=== PATIENT | female | born 1955 | race Caucasian/White ===

== ENCOUNTER 2017-03-13 07:51 | Day surgery (SDC) | payer OTHER ==
[~2017-03-13 07:51] MED LIST: Albuterol 0.083% 2.5 MG/3 ML Neb Soln NEB PRN; HYDROmorphone 2 MG/ML SDV IV PRN; HYDROmorphone 2 MG/ML SDV IVPUSH PRN; Lactated Ringers 1,000 ML IV SCH; Naloxone 0.4 MG/ML SDV IVPUSH PRN; Ondansetron 4 MG/2 ML SDV IVPUSH PRN; Promethazine 25 MG/ML SDV IM PRN; fentaNYL 100 MCG/2 ML SDV IVPUSH PRN
[2017-03-13] MEDS ORDERED: HYDROmorphone 2 MG/ML SDV IVPUSH PRN (08:05)
[2017-03-13] MEDS: Lactated Ringers 1,000 ML IV SCH ×2 (09:25→16:40)
[2017-03-13] MEDS ORDERED: Lactated Ringers 1,000 ML IV ONE (12:00)
[2017-03-13] MEDS ORDERED: Dexamethasone 4 MG/ML 5 ML MDV IVPUSH ONE (12:00)
[2017-03-13] MEDS ORDERED: Rocuronium 50 MG/5 ML Vial IV ONE (12:00)
[2017-03-13] MEDS ORDERED: Succinylcholine 200 MG/10 ML MDV IV ONE (12:00)
[2017-03-13] MEDS ORDERED: fentaNYL 100 MCG/2 ML SDV IV ONE (12:00)
[2017-03-13] MEDS ORDERED: ceFAZolin 1 GM Vial IV ONE (12:00)
[2017-03-13] MEDS ORDERED: Propofol 200 MG/20 ML SDV IV ONE (12:00)
[2017-03-13] MEDS ORDERED: Naloxone 0.4 MG/ML SDV IV ONE (12:00)
[2017-03-13] MEDS ORDERED: ePHEDrine 50 MG/ML SDV IV ONE (12:00)
[2017-03-13] MEDS ORDERED: Midazolam 1 MG/ML 2 ML SDV IV ONE (12:00)
[2017-03-13] MEDS ORDERED: Phenylephrine 1% 10 MG/ML SDV IV ONE (12:00)
[2017-03-13] MEDS ORDERED: HYDROmorphone 2 MG/ML SDV IV ONE (12:00)
[2017-03-13] MEDS ORDERED: Isosulfan Blue 5 ML SDV ONE ×2 (12:26→12:30)
--- NOTE | 2017-03-13 15:18 | NM ---
INDICATION: Left breast CA/patient scheduled for bilateral mastectomy with left breast CA. NUCLEAR MEDICINE TUMOR LOCALIZATION, LIMITED: At 0838 hours, 1.1 mCi [id number] colloid was injected at the site of drainage for left breast cancer. The injection was made with 1.2 mL volume. MTDD
--- NOTE | 2017-03-13 17:55 | PCM.OPNOTE ---
- General Post-Op/Procedure Note Date of Surgery/Procedure: 03/13/17 Operative Procedure(s): Bilat Mastectomy. L Sentinal Node Bx Pre Op Diagnosis: L Breast cancer Post-Op Diagnosis: Same Anesthesia Technique: General ET Tube Primary Surgeon: Domenico Burrell Anesthesia Provider: Shaw Aguilera Pathology: R & L Breasts and L Nodes EBL in mLs: 300 Surgical Drain/Tube Type: Nirav Orozco Flat Drain (in each axilla) Complications: None Condition: Good
[2017-03-13] MEDS ORDERED: Acetaminophen/HYDROcodone 325-5 MG Tab PO PRN (17:57)
[2017-03-13] MEDS ORDERED: Lactated Ringers 1,000 ML IV SCH (18:00)
[2017-03-13] MEDS: Morphine 2 MG/ML Syringe IVPUSH PRN ×2 (18:43→21:47)
--- NOTE | 2017-03-13 23:51 | OR ---
DATE OF OPERATION: 03/13/2017 SURGEON: Domenico Burrell MD PREOPERATIVE DIAGNOSIS: Left breast cancer. POSTOPERATIVE DIAGNOSIS: Left breast cancer. PROCEDURE: 1. Right and left simple mastectomies. 2. Left sentinel node biopsy. 3. Left breast injection of technetium-99 sulfur colloid. 4. Left breast injection of Lymphazurin blue dye. ANESTHESIA: General. DESCRIPTION OF PROCEDURE: The patient was injected with technetium-99 sulfur colloid in the left lateral areolar position intradermal and then eventually brought to the operating room, where general endotracheal anesthesia was administered. 3 mL of Lymphazurin blue was injected in the left subareolar breast tissue. Both breasts were prepped and draped sterilely. The mastectomy on the left side was performed first by doing the upper outer portion of the flap so I had access to the axilla. [place] nodes were then removed. She had 3 fairly active nodes. The first two were removed and the level 1 nodes with activity of 7399 and 9507. In the level 2 area, I was able to find an active node with a 10 second count of 10,536. A fourth small area of activity was encountered without an obvious palpable node. I did remove that tissue and a 10 second count of 1315 was present. I then completed the upper flap of the mastectomy by continuing dissection along the plane between the subcutaneous tissue and breast tissue to the level of the clavicle and down to the pectoral muscle. This was continued medially to the sternum and laterally until the latissimus dorsi muscle was identified. Lastly, the inferior flap was raised down to the level of the chest wall. The breast tissue was removed with electrocautery. Some larger bleeders were suture ligated with 3-0 Vicryl or tied with 3-0 Vicryl tie. Once the breast tissue was completely removed, the wound was thoroughly irrigated and the surgical site inspected and was hemostatic. Wound was closed in 2 layers with 2 - 0 Vicryl subcutaneous sutures and skin reapproximated with lulu. I did bring out a quarter-inch flat drain that was placed in the left axilla and secured it to the skin with 2-0 silk and connected it to bulb suction. Blood loss on this side was estimated at 200 mL and she tolerated this well. Next, the right mastectomy was performed by raising the skin flaps in the usual positions to the level of the clavicle superiorly, to the sternum medially, and latissimus dorsi laterally. The inferior flap was raised down to the level of the chest wall and breast tissue removed using electrocautery. There was one large bleeder and the right axilla was clamped and suture ligated with 3-0 Vicryl. Otherwise, some minimal oozing occurred, controlled with electrocautery. Once the breast tissue was removed on the right, I did palpate the axilla and no abnormalities were noted. Wound was closed in the same fashion as the other side. Estimated blood loss on this side was 150 mL[address] I also did place a quarter-inch flat drain in the right axilla. A bulky sterile pressure dressing with a binder was placed around her chest. The patient tolerated the procedure well. She was extubated and returned to recovery in stable condition. /[id number] ZORAN/BELKIS PEACE
[2017-03-14] MEDS: Morphine 2 MG/ML Syringe IVPUSH PRN ×2 (04:25→07:59)
--- NOTE | 2017-03-14 08:23 | PCM.SURGPN ---
- General Info Date of Service: 03/14/17 POD#: 1 Functional Status: Reports: Pain Controlled, Tolerating Diet - Review of Systems General: Reports: No Symptoms - Patient Data Vitals - Most Recent: Last Vital Signs Temp 98.5 F 03/14/17 04:30 Pulse 83 03/14/17 04:30 Resp 16 03/14/17 04:30 BP 104/61 03/14/17 04:30 Pulse Ox 96 03/14/17 04:30 Weight - Most Recent: 78.471 kg I&O - Last 24 Hours: Intake & Output 03/13/17 03/14/17 03/14/17 22:59 06:59 14:59 Intake Total 546 1297 Output Total 170 20 Balance 376 1277 Med Orders - Current: Current Medications Hydrocodone Bitart/Acetaminophen ([place] 325-5 Mg) 1 tab PO Q4H PRN PRN Reason: Pain (mild 1-3) Albuterol (Proventil Neb Soln) 2.5 mg NEB ONETIME PRN PRN Reason: Wheezing Fentanyl (Sublimaze) 50 mcg IVPUSH Q5M PRN PRN Reason: Pain (severe 7-10) Hydromorphone HCl (Dilaudid) 0.2 mg IVPUSH Q10M PRN PRN Reason: Pain (severe 7-10) Lactated Ringer's (Ringers, Lactated) 1,000 mls @ 125 mls/hr IV ASDIRECTED [facility] Last Admin: 03/14/17 00:30 Dose: 125 mls/hr Morphine Sulfate (Morphine) 2 mg IVPUSH Q1H PRN PRN Reason: Pain (severe 7-10) Last Admin: 03/14/17 07:59 Dose: 2 mg Naloxone HCl (Narcan) 0.2 mg IVPUSH Q1M PRN PRN Reason: Respiratory Depression Ondansetron HCl (Zofran) 4 mg IVPUSH ONETIME PRN PRN Reason: Nausea/Vomiting Last Admin: 03/13/17 18:49 Dose: 4 mg Promethazine HCl (Phenergan) 12.5 mg IM Q4H PRN PRN Reason: Nausea/Vomiting Last Admin: 03/13/17 21:42 Dose: 12.5 mg Sertraline HCl (Zoloft) 100 mg PO DAILY [facility] Discontinued Medications Hydromorphone HCl (Dilaudid) 0.2 mg IVPUSH Q10M PRN PRN Reason: Pain (moderate 4-6) Last Admin: 03/13/17 17:53 Dose: 0.2 mg Hydromorphone HCl (Dilaudid) 0.2 mg IV Q10M PRN PRN Reason: Pain (severe 7-10) Lactated Ringer's (Ringers, Lactated) 1,000 mls @ 125 mls/hr IV ASDIRECTED [facility]MA[facility] Last Admin: 03/13/17 16:40 Dose: 125 mls/hr Lactated Ringer's (Ringers, Lactated) 1,000 mls @ 0 mls/hr IV ASDIRECTED [facility] PRN Reason: KVO Isosulfan Blue (Lymphazurin 1%) 5 ml .XX .STK-MED ONE Stop: 03/13/17 12:27 Last Admin: 03/13/17 12:26 Dose: 5 ml - Exam Wound/Incisions: Healing Well, Dressing Dry and Intact, No Drainage - Problem List Review Problem List Initiated/Reviewed/Updated: Yes - My Orders Last 24 Hours: Active Orders 24 hr Category Date Time Status Patient Status [ADT] Routine ADT 03/13/17 08:00 Active Oxygen Therapy [RC] PRN Care 03/13/17 17:56 Active Oxygen Therapy [RC] PRN Care 03/13/17 17:57 Active RT Incentive Spirometry [RC] Q2HWA Care 03/13/17 17:57 Active Ready for Discharge [RC] PER UNIT ROUTINE Care 03/14/17 08:21 Ordered Surgical Drains [Drain Management] [RC] QSHIFT Care 03/13/17 17:59 Active Up With Assistance [RC] ASDIRECTED Care 03/13/17 17:56 Active Vital Signs [RC] 00,04,08,12,16,20 Care 03/13/17 17:57 Active Full Liquid Diet [DIET] Diet 03/13/17 Dinner Ordered Acetaminophen/HYDROcodone [[place] 325-5 MG] Med 03/13/17 17:57 Active 1 tab PO Q4H PRN HYDROmorphone [Dilaudid] Med 03/13/17 08:05 Active 0.2 mg IVPUSH Q10M PRN Lactated Ringers [Ringers, Lactated] 1,000 ml Med 03/13/17 18:00 Active IV ASDIRECTED Morphine Med 03/13/17 17:57 Active 2 mg IVPUSH Q1H PRN Sertraline [Zoloft] Med 03/14/17 09:00 Active 100 mg PO DAILY Abdominal Binder [OM.PC] Per Unit Routine Oth 03/13/17 17:56 Ordered Peripheral IV Insertion Adult [OM.PC] Routine Oth 03/13/17 08:00 Ordered Sequential Compression Device [OM.PC] Routine Oth 03/13/17 08:00 Ordered Medication Orders Hydrocodone Bitart/Acetaminophen ([place] 325-5 Mg) 1 tab PO Q4H PRN PRN Reason: Pain (mild 1-3) Albuterol (Proventil Neb Soln) 2.5 mg NEB ONETIME PRN PRN Reason: Wheezing Fentanyl (Sublimaze) 50 mcg IVPUSH Q5M PRN PRN Reason: Pain (severe 7-10) Hydromorphone HCl (Dilaudid) 0.2 mg IVPUSH Q10M PRN PRN Reason: Pain (severe 7-10) Lactated Ringer's (Ringers, Lactated) 1,000 mls @ 125 mls/hr IV ASDIRECTED [facility] Last Admin: 03/14/17 00:30 Dose: 125 mls/hr Morphine Sulfate (Morphine) 2 mg IVPUSH Q1H PRN PRN Reason: Pain (severe 7-10) Last Admin: 03/14/17 07:59 Dose: 2 mg Admin: 03/14/17 04:25 Dose: 2 mg Admin: 03/13/17 21:47 Dose: 2 mg Admin: 03/13/17 18:43 Dose: 2 mg Naloxone HCl (Narcan) 0.2 mg IVPUSH Q1M PRN PRN Reason: Respiratory Depression Ondansetron HCl (Zofran) 4 mg IVPUSH ONETIME PRN PRN Reason: Nausea/Vomiting Last Admin: 03/13/17 18:49 Dose: 4 mg Promethazine HCl (Phenergan) 12.5 mg IM Q4H PRN PRN Reason: Nausea/Vomiting Last Admin: 03/13/17 21:42 Dose: 12.5 mg Sertraline HCl (Zoloft) 100 mg PO DAILY [facility] - Assessment Assessment (Free Text/Narrative):: Doing well POD #1 Ok to discharge
[2017-03-14] MEDS ORDERED: Sertraline 100 MG Tab PO SCH (09:00)
[2017-03-14 10:56] VITALS: BP 85/49
--- NOTE | 2017-03-16 17:28 | PCM.HPR ---
H & P Addendum review - H & P Addendum Review Date of Original H & P: 02/17/17 Date Reviewed: 03/13/17 Patient was Examined: No Changes
== END 2017-03-14 10:25 | disposition home or self-care (01) ==
LOC: FB.SDS 07:51 → EDSTATUS 12:00 → FB.MS 12:04 → FB.SDS 03-14 10:25
PROVIDERS: ATTEND Surgery
DX: C79.81 Secondary malignant neoplasm of breast (principal); C50.912 Malignant neoplasm of unspecified site of left female breast; R92.0 Mammographic microcalcification found on diagnostic imaging of breast; Z90.49 Acquired absence of other specified parts of digestive tract; Z98.890 Other specified postprocedural states
CPT/HCPCS: 19303; 38500; 38792; 78800; 88307; 88342; 88360; 88365; A9270; A9541; J0330; J0690; J1100; J1170; J2250; J2270; J2310; J2370; J2405; J2550; J2704; J3010; J7120; Q9968; 88271; 88274

== ENCOUNTER 2017-05-14 18:05 | Emergency (ER) | payer OTHER ==
[2017-05-14 18:12] VITALS: BP 127/74
[2017-05-14] MEDS ORDERED: Metoclopramide 10 MG/2 ML SDV IVPUSH ONE (18:55)
[2017-05-14] MEDS ORDERED: Pantoprazole 40 MG Vial IVPUSH ONE (18:56)
[2017-05-14] MEDS ORDERED: diphenhydrAMINE 50 MG/ML SDV IVPUSH ONE (18:57)
[2017-05-14] MEDS ORDERED: Ketorolac 30 MG/ML SDV IVPUSH ONE (18:59)
[2017-05-14] MEDS ORDERED: Sodium Chloride 0.9% 1,000 ML IV SCH (19:00)
--- NOTE | 2017-05-16 10:24 | ER ---
DATE SEEN: 05/14/2017 TIME SEEN: The patient was seen at 1810 hours. HISTORY OF PRESENT ILLNESS: Chelsea is a breast cancer survivor. She has bilateral mastectomy with lymph node dissection. She started chemotherapy on 05/04/2017 and she was vomiting for 2 days, now she started vomiting today and so is dehydrated and lightheaded. Does not have fever. No chest pain. No shortness of breath, cough, abdominal pain, diarrhea, or blood in her stool, black tarry stools, or pedal edema. REVIEW OF SYSTEMS: Negative except as noted above. ALLERGIES: None. MEDICATIONS: She is not on any medicines currently. She has taken Zoloft for depression and Zofran for nausea. PHYSICAL EXAMINATION: VITAL SIGNS: Blood pressure 127/74, heart rate 91, respirations 18, oxygen saturation 100%, and temperature 37 degrees centigrade. HEENT: Negative. Mild injected sclerae because of her tears and fear. TMs negative. Pharynx without abnormality, moist. NECK: Supple. No thyromegaly or masses in neck. No cervical adenopathy. Bilateral meniscectomy. Incisions are clean. LUNGS: Clear to auscultation. HEART: S1, S2. No murmur. ABDOMEN: Soft. No guarding. No abdominal discomfort. Increased abdominal girth. EXTREMITIES: Lower extremities without linear vascular tenderness. No pedal edema. ASSESSMENT: 1. Status post second treatment chemotherapy. The patient wants to stop because she has had such violent vomiting. 2. She needs encouragement to continue with chemotherapy. Her chemotherapist is Dr. Cody at [facility]. PLAN: The patient received a liter of normal saline and also followed with a liter of D5 lactated Ringer's and then dismissed. Follow up with doctor as needed. Use trial of Phenergan for nausea, (stronger and a little more sedating) and also discuss with her oncologist to use more aggressive prevention of nausea and vomiting and dehydration after chemotherapy. Followup with doctor next 3-5 days, earlier if worse. /[id number] CHAPO/BELKIS
== END 2017-05-14 20:45 | disposition home or self-care (01) ==
LOC: FB.ED 18:05
DX: R11.10 Vomiting, unspecified (principal); F32.9 Major depressive disorder, single episode, unspecified; Z90.13 Acquired absence of bilateral breasts and nipples
CPT/HCPCS: 36415; 80053; 85025; 87040; 96361; 96374; 96375; 99283; C9113; J1200; J1885; J2765; J7040